=== PATIENT | male | born 1990 | race Caucasian/White ===

== ENCOUNTER 2021-06-22 10:49 | Emergency (ER) | payer SELFPAY ==
[2021-06-22] MEDS ORDERED: KETOROLAC 30 MG/ML INJ ONE (11:30)
--- NOTE | 2021-06-22 12:06 | RAD REPORT ---
EXAM DESCRIPTION: RAD - Chest Single View - 06/22/2021 12:01 pm CLINICAL HISTORY: right mid back pain COMPARISON: No comparisons FINDINGS: Lines: None. Lungs: No evidence of edema or pneumonia. Pleural: No significant pleural effusions or pneumothorax. Cardiac: The heart size is within normal limits. Bones: No acute fractures. Other: IMPRESSION: No acute cardiopulmonary disease.
--- NOTE | 2021-06-22 12:24 | ER ---
Nurse's Notes [facility] Name: Benito Etienne Age: 30 yrs Sex: Male : 1990 Arrival Date: 06/22/2021 Time: 10:50 Bed 11 Private MD: Diagnosis: Dorsalgia, unspecified Presentation: 06/22 11:03 Chief complaint: Patient states: woke up today with r arm and shoulder pain that is ab2 intermittent. Coronavirus screen: Vaccine status: Patient reports receiving the 2nd dose of the covid vaccine. Client denies travel out of the [place] in the last 14 days. Ebola Screen: Patient negative for fever greater than or equal to 101.5 degrees Fahrenheit, and additional compatible Ebola Virus Disease symptoms Patient denies exposure to infectious person. Patient denies travel to an Ebola-affected area in the 21 days before illness onset. Initial Sepsis Screen: Does the patient meet any 2 criteria? No. Patient's initial sepsis screen is negative. Does the patient have a suspected source of infection? No. Patient's initial sepsis screen is negative. Risk Assessment: Do you want to hurt yourself or someone else? Patient reports no desire to harm self or others. Onset of symptoms was June 22, 2021. 11:03 Method Of Arrival: Ambulatory ab2 11:03 Acuity: CLARA 4 ab2 Triage Assessment: 11:05 General: Appears uncomfortable, Behavior is calm. Pain: Complains of pain in back and ab2 right arm-r scapularr region. Musculoskeletal: Range of motion: limited in right shoulder. Historical: - Allergies: 11:06 No Known Allergies; ab2 - PMHx: 11:06 None; ab2 - Immunization history:: Client reports receiving the 2nd dose of the Covid vaccine, Flu vaccine is up to date. - Social history:: Smoking status: Patient denies any tobacco usage or history of. Screenin:05 Abuse screen: Denies threats or abuse. Denies injuries from another. Nutritional ab2 screening: No deficits noted. Tuberculosis screening: No symptoms or risk factors identified. Fall Risk None identified. Assessment: 11:15 General: Appears in no apparent distress. comfortable, Behavior is calm, cooperative, ab2 appropriate for age. Pain: Complains of pain in right scapular area Pain currently is 10 out of 10 on a pain scale. Neuro: Level of Consciousness is awake, alert, obeys commands, Oriented to person, place, time, situation, Appropriate for age [employer] are equal bilaterally Moves all extremities. Gait is steady. Cardiovascular: No deficits noted. Denies chest pain, shortness of breath, Patient's skin is warm and dry. Chest pain is denied. Respiratory: No deficits noted. Airway is patent Respiratory effort is even, unlabored, Respiratory pattern is regular, symmetrical, Breath sounds are clear bilaterally. GI: No deficits noted. No signs and/or symptoms were reported involving the gastrointestinal system. : No deficits noted. No signs and/or symptoms were reported regarding the genitourinary system. EENT: No deficits noted. No signs and/or symptoms were reported regarding the EENT system. Derm: No deficits noted. No signs and/or symptoms reported regarding the dermatologic system. Skin is intact, is healthy with good turgor, Skin is dry, Skin is pink, warm \T\ dry. Musculoskeletal: Reports pain in right scapular area. Vital Signs: 11:03 BP 130 / 77; Pulse 86; Resp 18 S; Pulse Ox 95% on R/A; Weight 129.27 kg; Height 6 ft. 4 ab2 in. (193.04 cm); 12:24 BP 129 / 69; Pulse 81; Resp 18; Pulse Ox 99% on R/A; ab2 11:03 Body Mass Index 34.69 (129.27 kg, 193.04 cm) ab2 ED Course: 10:50 Patient arrived in ED. mr 11:05 Triage completed. ab2 11:06 Arm band placed on right wrist. ab2 11:07 Efrain Davis PA is PHCP. cp 11:07 Kwesi Swanson MD is Attending Physician. cp 11:15 Omid Paz is Primary Nurse. ab2 11:16 Patient has correct armband on for positive identification. Bed in low position. Call ab2 light in reach. Side rails up X2. 11:16 No provider procedures requiring assistance completed. ab2 12:00 XRAY Chest (1 view) In Process Unspecified. EDMS 12:28 Patient did not have IV access during this emergency room visit. ab2 Administered Medications: 11:32 Drug: Ketorolac 60 mg Route: IM; Site: left ventrogluteal; ab2 12:25 Follow up: Response: No adverse reaction ab2 Outcome: 12:23 Discharge ordered by . bella 12: Discharged to home ambulatory. ab2 12: Condition: good 12:28 Discharge instructions given to patient, Instructed on discharge instructions, follow up and referral plans. medication usage, Demonstrated understanding of instructions, follow-up care, medications, Prescriptions given X 3. 12:28 Patient left the ED. ab2 Signatures: Dispatcher [employer] EDMS Keisha Velazquez mr Efrain Davis, Omid Simpson cp ab2
--- NOTE | 2021-06-22 12:24 | EDPHYS ---
Physician Documentation [facility] Name: Benito Etienne Age: 30 yrs Sex: Male : 1990 Arrival Date: 06/22/2021 Time: 10:50 Bed 11 Private MD: ED Physician Kwesi Swanson HPI: 06/22 11:24 This 30 yrs old Male presents to ER via Ambulatory with complaints of Back Pain, cp Shoulder Pain. 11:24 The patient presents with pain that is acute, with no known mechanism of injury. The cp symptoms are located in the medial to right scapular area and medial to right subscapular area. Onset: The symptoms/episode began/occurred this morning. The pain does not radiate. Associated signs and symptoms: The patient has no apparent associated signs or symptoms. 11:25 Patient reports pain started this morning when he awoke and thinks it may be due to the cp way he slept last night. Patient reports he was able to ride his bike to work this morning. Denies trauma to area. Historical: - Allergies: 11:06 No Known Allergies; ab2 - PMHx: 11:06 None; ab2 - Immunization history:: Client reports receiving the 2nd dose of the Covid vaccine, Flu vaccine is up to date. - Social history:: Smoking status: Patient denies any tobacco usage or history of. ROS: 11:30 Constitutional: Negative for body aches, chills, fever, poor PO intake. cp 11:30 Eyes: Negative for injury, pain, redness, and discharge. cp 11:30 Neck: Negative for pain with movement, pain at rest, stiffness. 11:30 Cardiovascular: Negative for chest pain, palpitations. 11:30 Respiratory: Negative for cough, shortness of breath, wheezing. 11:30 Abdomen/GI: Negative for abdominal pain, nausea, vomiting, and diarrhea. 11:30 Back: Positive for pain at rest, pain with movement, of the medial to right scapular area and medial to right subscapular area, Negative for injury or acute deformity, decreased range of motion. 11:30 Skin: Negative for cellulitis, rash. 11:30 Neuro: Negative for altered mental status, headache, numbness, weakness. 11:30 All other systems are negative. Exam: 11:35 Constitutional: The patient appears in no acute distress, alert, awake, cp non-diaphoretic, non-toxic, well developed, well nourished, uncomfortable. 11:35 Head/Face: Normocephalic, atraumatic. cp 11:35 Chest/axilla: Inspection: normal, Palpation: is normal, no crepitus, no tenderness. 11:35 Cardiovascular: Rate: normal, Rhythm: regular, Pulses: Pulses are 2+ in right radial artery. 11:35 Respiratory: the patient does not display signs of respiratory distress, Respirations: normal, no use of accessory muscles, no retractions, labored breathing, is not present, Breath sounds: are clear throughout, no decreased breath sounds, no stridor, no wheezing. 11:35 Abdomen/GI: Exam negative for discomfort, distension, guarding, Inspection: abdomen appears normal. 11:35 Back: pain, that is moderate, of the medial to right scapular area and medial to right subscapular area, ROM is painful, rotation of right shoulder. 11:35 Musculoskeletal/extremity: Joints: the right shoulder displays no pain to palpation of right shoulder joint. 11:35 Skin: cellulitis, is not appreciated, no rash present. 11:35 Neuro: Orientation: to person, place \T\ time. Mentation: is normal, Motor: moves all fours, strength is normal, Sensation: is normal, Gait: is steady, at a normal pace, without difficulty. Vital Signs: 11:03 BP 130 / 77; Pulse 86; Resp 18 S; Pulse Ox 95% on R/A; Weight 129.27 kg; Height 6 ft. 4 ab2 in. (193.04 cm); 12:24 BP 129 / 69; Pulse 81; Resp 18; Pulse Ox 99% on R/A; ab2 11:03 Body Mass Index 34.69 (129.27 kg, 193.04 cm) ab2 MDM: 11:18 Patient medically screened. cp 12:23 Data reviewed: vital signs, nurses notes, radiologic studies, plain films. cp 12:23 Test interpretation: by ED physician or midlevel provider: plain radiologic studies. cp Counseling: I had a detailed discussion with the patient and/or guardian regarding: the historical points, exam findings, and any diagnostic results supporting the discharge/admit diagnosis, radiology results, to return to the emergency department if symptoms worsen or persist or if there are any questions or concerns that arise at home. Response to treatment: the patient's symptoms have markedly improved after treatment, and as a result, I will discharge patient. 06/22 11:24 Order name: XRAY Chest (1 view); Complete Time: 12:23 cp 06/22 12:23 Interpretation: Report review. cp Administered Medications: 11:32 Drug: Ketorolac 60 mg Route: IM; Site: left ventrogluteal; ab2 12:25 Follow up: Response: No adverse reaction ab2 Disposition: 12:28 Co-signature as Attending Physician, Kwesi Swanson MD I agree with the assessment and kdr plan of care. Disposition Summary: 06/22/21 12:23 Discharge Ordered Location: Home cp Problem: new cp Symptoms: have improved cp Condition: Stable cp Diagnosis - Dorsalgia, unspecified cp Followup: cp - With: Private Physician - When: 2 - 3 days - Reason: Recheck today's complaints Discharge Instructions: - Discharge Summary Sheet cp - Acute Back Pain, Adult cp Forms: - Medication Reconciliation Form cp - Thank You Letter cp - Antibiotic Education cp - Prescription Opioid Use cp Prescriptions: - Cyclobenzaprine 10 mg Oral Tablet - take 1 tablet by ORAL route every 8 hours As needed; 20 tablet; Refills: 0, cp Product Selection Permitted - Diclofenac Sodium 75 mg Oral tablet,delayed release (DR/EC) - take 1 tablet by ORAL route 2 times per day; 20 tablet; Refills: 0, Product cp Selection Permitted - Lidoderm 5 % Topical adhesive patch,medicated - apply 1 patch by TOPICAL route once daily; 1 box; Refills: 0, Product Selection cp Permitted Signatures: Dispatcher [employer] EDWA Kwesi Swanson MD MD kdr Efrain Davis PA PA cp Omid Paz ab2
[2021-06-22 12:33] VITALS: BP 129/69; O2SAT 99
== END 2021-06-22 12:28 | disposition home or self-care (01) ==
LOC: ER 10:49
DX: M54.9 Dorsalgia, unspecified (principal)
CPT/HCPCS: 71045; 96372; 99283